=== PATIENT | male | born 1985 | race Caucasian/White ===

== ENCOUNTER 2018-09-03 23:44 | Emergency (ER) | payer SELFPAY ==
[~2018-09-03] VITALS: Ht 167.6 cm; Wt 75.7 kg
[2018-09-03 23:53] VITALS: BP_SYST 139
[2018-09-04] MEDS ORDERED: KETOROLAC TROMETHAMINE 60 MG/2 ML VIAL IM ONE (00:15)
[2018-09-04 02:00] VITALS: BP_SYST 128
== END 2018-09-04 02:00 | disposition home or self-care (01) ==
LOC: SED 23:44
DX: N50.82 Scrotal pain (principal); R03.0 Elevated blood-pressure reading, without diagnosis of hypertension
CPT/HCPCS: 76870; 81002; 96372; 99284; J1885